=== PATIENT | female | born 2005 | race Hispanic/Latino ===

== ENCOUNTER 2023-04-28 06:01 | Emergency (ER) | payer SELFPAY ==
[2023-04-28] MEDS ORDERED: Acetaminophen 500 MG TAB ONE (06:58)
[2023-04-28 06:59] LABS: BHCG - Serum Negative (NEGATIVE); Pregs Control Background? CLEAR/WHITE (CLR/WHITE); Pregs Control Bar Appear? YES (CONTROL BAR)
[2023-04-28 07:43] LABS: Bacteria/HPF 2+ HPF (None Seen); Bilirubin Negative (Negative); Blood, Urine Negative (Negative); CAUTI Indications for Culture Fever or rigors; Clarity Clear (Clear); Glucose, Urine (Dipstick) Normal (Negative); Ketone, Urine Negative (Negative); Leukocyte 250 Leu/uL (Negative); Nitrite Negative (Negative); Protein, Urine (Dipstick) Negative (Neg-Trace); RBC/HPF 0-3 HPF (0-3); Specific Gravity, Urine 1.019 (1.002-1.036); Urobilinogen Normal mg/dL (Less than 2)
[2023-04-28 07:44] LABS: Urine Culture Reflex No No
[2023-04-28 08:05] LABS: SARS-CoV-2 NAA Rapid Test Not Detected (NotDetected)
== END 2023-04-28 08:16 | disposition home or self-care (01) ==
LOC: ERS 06:01
DX: B34.9 Viral infection, unspecified (principal); N39.0 Urinary tract infection, site not specified; Z20.822 Contact with and (suspected) exposure to COVID-19
CPT/HCPCS: 36415; 71045; 81001; 84703